=== PATIENT | male | born 1965 | race Caucasian/White ===

== ENCOUNTER 2019-12-21 13:13 | Emergency (ER) | payer BC, SELFPAY ==
[2019-12-21 13:28] VITALS: BP 170/86; PULSE 66; RESP 20; TEMP 36.8; O2SAT 98
--- NOTE | 2019-12-21 13:39 | ED.GENADULT ---
HPI - General Adult General Chief complaint: Upper Respiratory Infection Stated complaint: congestion/fever/cough History of Present Illness HPI narrative: This is a 54-year-old male comes in with body ache and malaise cough and a fever. Patient states that he is taken some Tylenol ibuprofen denies any nausea or vomiting no dizziness Related Data Home Medications Medication Instructions Recorded Confirmed aspirin [Adult Low Dose Aspirin] 81 mg PO DAILY 12/21/19 12/21/19 pantoprazole [Protonix] 40 mg PO HS 12/21/19 12/21/19 Allergies Allergy/AdvReac Type Severity Reaction Status Date / Time No Known Allergies Allergy Verified 12/21/19 13:32 Review of Systems Review of Systems: Narrative: CONSTITUTIONAL: Reports fever, chills, or sweats. EYES: Denies visual changes, redness, or discharge. ENT: Reports rhinorrhea, congestion, sore throat, or otalgia. CARDIOVASCULAR:Denies chest pain, palpitations, or edema. RESPIRATORY: Reports cough or dyspnea. GASTROINTESTINAL: Denies abdominal pain, nausea, vomiting, or diarrhea. GENITOURINARY: Denies dysuria or hematuria. SKIN:[Denies rash or itching. MUSCULOSKELETAL:Denies back pain, joint pain, or myalgia. NEUROLOGIC: Denies headache, numbness, or weakness. PSYCHIATRIC:Denies anxiety or depression PMFSH Social History Social History Gender identity (if verbalized by the patient): Male Comments At time as signature, I have reviewed and agree with nursing past medical, social, surgical and family history. Please see nursing chart for further information. There is no relevant family history pertinent to the presenting complaint. Exam Narrative: Exam Narrative: GENERAL:Well-appearing, well-nourished, and in no acute distress. Complains of fatigue HEAD:Normocephalic, atraumatic. EYES: PERRLA and EOMI. ENT: Nares clear, moderate clear rhinorrhea or epistaxis. Mucous membranes moist. TM bulging NECK: Supple. CHEST: Clear to auscultation. No respiratory distress. HEART: Regular rate and rhythm. No murmur heard. Normal peripheral pulses. ABDOMEN: Soft, nontender, nondistended, normal active bowel sounds. EXTREMITIES: Normal range of motion. No edema. SKIN: Warm, dry, no rash. NEURO: No focal deficits. Alert and oriented x3. Course Vital Signs Vital signs: Vital Signs Temperature 98.2 F 12/21/19 13:28 Pulse Rate 66 12/21/19 13:28 Respiratory Rate 20 12/21/19 13:28 Blood Pressure 170/86 H 12/21/19 13:28 Pulse Oximetry 98 12/21/19 13:28 Temperature 98.2 F 12/21/19 13:28 Pulse Rate 66 12/21/19 13:28 Respiratory Rate 20 12/21/19 13:28 Blood Pressure 170/86 H 12/21/19 13:28 Pulse Oximetry 98 12/21/19 13:28 Medical Decision Making Vital Signs Vital Signs: Vital Signs Temperature 98.2 F 12/21/19 13:28 Pulse Rate 66 12/21/19 13:28 Respiratory Rate 20 12/21/19 13:28 Blood Pressure 170/86 H 12/21/19 13:28 Pulse Oximetry 98 12/21/19 13:28 Temperature 98.2 F 12/21/19 13:28 Pulse Rate 66 12/21/19 13:28 Respiratory Rate 20 12/21/19 13:28 Blood Pressure 170/86 H 12/21/19 13:28 Pulse Oximetry 98 12/21/19 13:28 Lab Data Labs: Influenza A Screen Positive Reference Range: Negative Influenza B Screen Negative Reference Range: Negative Discharge Plan Discharge Clinical Impression: Influenza Patient Disposition: Home, Self-Care Condition: Stable Instructions: Antibiotic Form Prescriptions: New ondansetron HCl [Zofran] 4 mg tablet 4 mg PO Q8H PRN (Reason: nausea and vomiting) Qty: 10 RF: 0 Xofluza 40 mg tablet 40 mg PO ONCE Qty: 2 RF: 0 No Action aspirin [Adult Low Dose Aspirin] 81 mg Tablet,Delayed Release (Dr/Ec) 81 mg PO DAILY RF: 0 pantoprazole [Protonix] 40 mg Tablet,Delayed Release (Dr/Ec) 40 mg PO HS RF: 0 Follow-up/Referrals: UNKNOWN,DOCTOR [Primary Care Provider] - Stand Alone Forms: Work/Scho
== END 2019-12-21 14:06 | disposition home or self-care (01) ==
PROVIDERS: Emergency Provider Nurse Practitioner Family
DX: J10.1 Influenza due to other identified influenza virus with other respiratory manifestations (principal); K21.9 Gastro-esophageal reflux disease without esophagitis
CPT/HCPCS: 87804; 99203; G0463

== ENCOUNTER 2021-04-28 11:05 | Emergency (ER) | payer OTHER, SELFPAY ==
[2021-04-28 11:12] VITALS: BP 152/92; PULSE 77; RESP 16; TEMP 36.6; O2SAT 99
--- NOTE | 2021-04-28 11:20 | ED.ABDPAIN ---
HPI - Abdominal Pain General Chief Complaint: Abdominal Pain Stated Complaint: abdominal pain/diarrhea Time Seen by Provider: 04/28/21 11:20 Source: patient and RN notes reviewed Mode of arrival: ambulatory Limitations: no limitations History of Present Illness HPI narrative: 55-year-old male presents to the [facility] with complaints of abdominal pain x1 week, worse since Wednesday, 2 days ago. Diarrhea every 2 hours. Denies any past surgical or medical history MD elicited complaint: abdominal pain Related Data Home Medications Medication Instructions Recorded Confirmed No Home Medications 04/28/21 04/28/21 Allergies Allergy/AdvReac Type Severity Reaction Status Date / Time No Known Allergies Allergy Verified 04/28/21 11:21 Review of Systems Review of Systems: All systems reviewed & are unremarkable except as noted in HPI and below Constitutional: Constitutional: Reports as per HPI, Reports chills and Denies fever(s) Eyes: Eyes: Reports no additional eye complaints ENT: Reports system reviewed and no additional complaints, except as documented Cardiovascular: Cardiovascular: Reports no additional cardiovascular complaints and Denies chest pain Respiratory: Respiratory: Reports no additional respiratory complaints, Denies chest congestion, Denies cough, Denies dyspnea and Denies wheezing Gastrointestinal: Gastrointestinal: Reports as per HPI, Reports abdominal pain, Reports diarrhea (q2h), Reports nausea and Denies vomiting Genitourinary: Genitourinary: Reports no additional male genitourinary complaints Musculoskeletal: Musculoskeletal: Reports no additional musculoskeletal complaints, Denies back pain and Denies myalgias Integumentary/Breasts: Skin/Breast: Reports system reviewed and no additional complaints, except as docu Neurologic: Reports system reviewed and no additional complaints, except as documented Psychiatric: Psychiatric: Reports no additional psychiatric complaints Allergic/Immunologic: Allergic/Immunologic: Reports no additional allergic/immunologic complaints PMFSH Social History Social History Gender identity (if verbalized by the patient): Male Comments Patient denies any significant past medical or surgical history. At the time of my signature, I reviewed and agree with the nursing past medical, surgical, social, and family history. There is no relevant family history pertinent to the patient complaint. Exam Const: General: healthy appearing, no acute distress and alert Nutritional Appearance: well nourished and obese Orientation/consciousness: patient oriented x3 Limitations: no limitations HENMT: Head: normal to inspection Eyes: Pupils: Equal, round and reactive pupils present Neck: Neck: normal visual inspection, no lymphadenopathy and no meningeal signs Chest: Chest palpation & inspection: normal inspection of the chest Resp: Effort & Inspection: normal respiratory effort and no use of accessory muscles Auscultation: clear to auscultation bilaterally, no crackles, no rales, no rhonchi and no wheezes Cardio: Rate: regular rate Rhythm: regular rhythm GI: GI Palp: Yes Soft to palpation, No Guarding due to palpation present (GI) and No Rebound tenderness present Auscultation: Hyperactive bowel sounds present Back/Spine/Pelvis: Back: no CVA tenderness Skin: General skin exam: normal color Rashes: no rashes Wounds: no wounds Neuro: General: patient oriented x3, moves all extremities, no meningeal signs and no focal motor deficits Speech: normal speech Gait exam (Neuro): Normal gait present Extrem: General: normal to inspection Psych: Appearance: grossly normal and well kempt Mental Status: mental status grossly normal Affect: normal affect Attitude: cooperative Thought content: Yes Normal thought content present Course Vital Signs Vital
== END 2021-04-28 11:31 | disposition short-term general hospital (02) ==
LOC: EXPGLEN 11:09
PROVIDERS: Emergency Provider Nurse Practitioner
DX: R10.9 Unspecified abdominal pain (principal); R19.7 Diarrhea, unspecified
CPT/HCPCS: 99212; G0463

== ENCOUNTER 2021-04-28 12:18 | Emergency (ER) | payer OTHER, SELFPAY ==
--- NOTE | ~2021-04-28 | CT_ITS ---
EXAMINATION: CT abdomen pelvis w con DATE: 04/28/2021 15:47 INDICATION: Lower abdominal pain. TECHNIQUE: Computed tomography (CT) of the abdomen and pelvis was performed with 100 mL Omnipaque-350 intravenous contrast. Automated exposure control and iterative reconstruction technique were employe d. The dose-length product was 1269.93 mGy-cm. COMPARISON: None FINDINGS: Small calcified left lower lobe nodule along with a few scattered small splenic calcifications consis tent with old granulomatous disease. Mild discoid atelectasis in the right lower lobe. Heart size is normal. No pericardial or pleural effusion. Mild diffuse hepatic steatosis. Gallbladder, pancreas, bi lateral adrenal glands and kidneys are normal. Normal appendix. There is wall thickening at the termi nal ileum as well as at the cecum consistent with terminal ileitis and proximal colitis. No bowel obs truction. Bladder is normal. No free intraperitoneal gas or fluid. No pathologically enlarged abdomin al or pelvic lymphadenopathy. Mild lumbar levocurvature with mild spondylosis. IMPRESSION: 1. Wall thickening of the terminal ileum and ascending colon consistent with terminal ileitis and pro ximal colitis which most likely infectious or inflammatory in etiology including Crohn's disease. Reviewed, dictated and finalized at location A. IMPRESSION: 1. Wall thickening of the terminal ileum and ascending colon consistent with te rminal ileitis and proximal colitis which most likely infectious or inflammator y in etiology including Crohn's disease.
[2021-04-28 12:32] VITALS: BP 156/92; PULSE 80; RESP 16; TEMP 37; O2SAT 96
[2021-04-28 12:47] LABS: Basophils Percent Auto 0.4 % (0.2-1.2); Eosinophils Absolute Auto 0.1 K/mm3 (0-0.3); Eosinophils Percent Auto 0.7 % (0-4.4); Hematocrit 45.8 % (42.0-52.0); Immature Granulocyte Absolute 0.02 K/mm3 (0.00-0.031); Immature Granulocyte Percent A 0.3 % (0-0.5); Lymphocytes Absolute Auto 1.19 K/mm3 (0.9-3.2); Lymphocytes Percent Auto 15.9 % (18.3-44.2); Mean Corpuscular HGB Conc 34.9 g/dl (32-36); Mean Corpuscular Hemoglobin 33.3 pg (26-34); Mean Corpuscular Volume 95.4 fl (80-100); Mean Platelet Volume 10.1 fl (7.4-10.4); Monocytes Absolute Auto 0.6 K/mm3 (0.1-0.6); Monocytes Percent Auto 7.5 % (2.6-8.5); Neutrophils Absolute Auto 5.6 K/mm3 (1.3-6.7); Neutrophils Percent Auto 75.2 % (45.5-73.1); Platelet Count Result 152 k/mm3 (150-375); Red Cell Distribution Width 12.4 % (11.5-14.5); White Blood Count 7.5 K/mm3 (4.5-10.0)
[2021-04-28 12:58] LABS: Alanine Aminotransferase 44 U/L (4-50); Albumin Level 4.7 g/dL (3.5-5.1); Alkaline Phosphatase 82 U/L (38-126); Anion Gap 13 mmol/L (8-16); Aspartate Amino Transferase 28 U/L (17-59); Bilirubin,Total 1.2 mg/dL (0.2-1.3); Blood Urea Nitrogen 13 mg/dL (9-20); Calcium 9.7 mg/dL (8.4-10.2); Carbon Dioxide 23 mmol/L (22-30); Chloride 97 mmol/L (98-107); Estimated CRCL calculation 103 ml/min; Estimated Glomerular Filt Rate > 60; Glucose 122 mg/dL (75-110); Lipase 34 U/L (23-300); Potassium 3.7 mmol/L (3.4-5.0); Sodium 133 mmol/L (137-145)
[2021-04-28 14:16] LABS: Add Urine Microscopic? YES; Appearance Urine Clear (Clear); Bacteria Urine Trace /hpf; Bilirubin Urine Negative (Negative); Blood Urine 1+ (Negative); Color Urine Amber (Yellow); Glucose Urine UA Negative (Negative); Ketones Urine Negative (Negative); Leukocyte Esterase Ur Negative LEU/UL (Negative); Mucus Urine Moderate /lpf; Nitrate Urine Negative (Negative); Protein Urine 1+ mg/dL (Negative); RBC Urine 0-2 /hpf (0-2); Specific Grav Ur 1.029 (1.001-1.035); Squamous Epithelial Cell Urine Rare /hpf (Few); Urobilinogen Urine Negative mg/dL (<2.0); WBC Urine 0-3 /hpf
[2021-04-28 15:00] VITALS: BP 135/87; PULSE 86; RESP 17; O2SAT 96
--- NOTE | 2021-04-28 16:43 | ED.GENADULT ---
HPI - General Adult General Chief complaint: Abdominal Pain Stated complaint: abd pain Time Seen by Provider: 04/28/21 13:51 History of Present Illness HPI narrative: Patient is a 55-year-old male who presents ER with crampy abdominal pain. Ongoing over the last couple days. Associated with frequent loose stools up to 20 a day. No fevers or chills or sweats. Occasionally still has blood in it. No known sick contacts. Has had a normal colonoscopy in the past. Has had nausea but no vomiting. Related Data Allergies Allergy/AdvReac Type Severity Reaction Status Date / Time No Known Allergies Allergy Verified 04/28/21 11:21 Review of Systems Review of Systems: All systems reviewed & are unremarkable except as noted in HPI and below Constitutional: Constitutional: Denies chills, Denies fever(s) and Denies weakness ENT: Denies nasal congestion and Denies sore throat Cardiovascular: Cardiovascular: Denies chest pain and Denies radiating jaw, neck or arm pain Respiratory: Respiratory: Denies cough and Denies dyspnea Gastrointestinal: Gastrointestinal: Reports abdominal pain, Reports diarrhea, Denies nausea and Denies vomiting PMFSH Past Medical History Medical History (Updated 04/28/21 @ 17:14 by Shady Toro MD) Healthy adult male Surgical History Surgical History (Updated 04/28/21 @ 17:14 by Shady Toro MD) No history of previous surgery Social History Social History (Updated 04/28/21 @ 17:14 by Shady Toro MD) Smoking status: Never smoker Gender identity (if verbalized by the patient): Male Exam Narrative: Exam Narrative: GENERAL: Well-appearing, well-nourished, and in no acute distress. HEAD: Normocephalic, atraumatic. ENT: Mucous membranes moist. CHEST: Clear to auscultation. No respiratory distress. HEART: Regular rate and rhythm. Normal peripheral pulses. ABDOMEN: Soft, nontender, nondistended. EXTREMITIES: Normal range of motion. No edema. SKIN: Warm, dry, no rash. NEURO: Alert and oriented x3. PSYCH: Normal mood and affect. Course Course Emergency Course: Patient informed of results. Discussed treatment plan. Discharge home. Vital Signs Vital signs: Vital Signs Temperature 98.6 F 04/28/21 12:32 Pulse Rate 80 04/28/21 12:32 Respiratory Rate 16 04/28/21 12:32 Blood Pressure 156/92 H 04/28/21 12:32 Pulse Oximetry 96 04/28/21 12:32 Temperature 98.6 F 04/28/21 12:32 Pulse Rate 86 04/28/21 15:00 Respiratory Rate 17 04/28/21 15:00 Blood Pressure 135/87 04/28/21 15:00 Pulse Oximetry 96 04/28/21 15:00 Medical Decision Making Vital Signs Vital Signs: Vital Signs Temperature 98.6 F 04/28/21 12:32 Pulse Rate 80 04/28/21 12:32 Respiratory Rate 16 04/28/21 12:32 Blood Pressure 156/92 H 04/28/21 12:32 Pulse Oximetry 96 04/28/21 12:32 Temperature 98.6 F 04/28/21 12:32 Pulse Rate 86 04/28/21 15:00 Respiratory Rate 17 04/28/21 15:00 Blood Pressure 135/87 04/28/21 15:00 Pulse Oximetry 96 04/28/21 15:00 Lab Data Result diagrams: 04/28/21 12:37 04/28/21 12:37 Labs: Lab Results 04/28/21 04/28/21 04/28/21 Range/Units 12:37 12:37 13:56 WBC 7.5 (4.5-10.0) K/mm3 RBC 4.80 (4.6-6.20) M/mm3 Hgb 16.0 (14.0-18.0) g/dL Hct 45.8 (42.0-52.0) % MCV 95.4 (80-100) fl MCH 33.3 (26-34) pg MCHC 34.9 (32-36) g/dl RDW 12.4 (11.5-14.5) % Plt Count 152 (150-375) k/mm3 MPV 10.1 (7.4-10.4) fl Immature Gran % (Auto) 0.3 (0-0.5) % Neut % (Auto) 75.2 H (45.5-73.1) % Lymph % (Auto) 15.9 L (18.3-44.2) % Prentiss % (Auto) 7.5 (2.6-8.5) % Eos % (Auto) 0.7 (0-4.4) % Baso % (Auto) 0.4 (0.2-1.2) % Lymph # (Auto) 1.19 (0.9-3.2) K/mm3 Prentiss # (Auto) 0.6 (0.1-0.6) K/mm3 Eos # (Auto) 0.1 (0-0.3) K/mm3 Baso # (Auto) 0.0 (0.0-0.1) K/mm3 Abs Immat Gran (auto) 0.02 (0.00-0.031) K/mm3 Absolute
== END 2021-04-28 17:10 | disposition home or self-care (01) ==
PROVIDERS: Emergency Provider Emergency Medicine
DX: K52.9 Noninfective gastroenteritis and colitis, unspecified (principal)
CPT/HCPCS: 36415; 74177; 80053; 81001; 83690; 85025; 99284; Q9967

== ENCOUNTER 2021-09-24 09:31 | Emergency (ER) | payer OTHER, SELFPAY ==
[2021-09-24] VITALS (21 sets, daily range): BP systolic 156–176; BP diastolic 87–119; PULSE 53–71; RESP 14–20; TEMP 36.6; O2SAT 95–100
--- NOTE | ~2021-09-24 | CT_ITS ---
EXAMINATION: CT brain wo con DATE: 09/24/2021 10:53 INDICATION: Headache. TECHNIQUE: Computed tomography (CT) of the head was performed without intravenous contrast. The mA wa s adjusted according to patient size. Iterative reconstruction technique was employed. The dose-lengt h product was 681.00 mGy-cm. COMPARISON: None FINDINGS: There is no intracranial hemorrhage, acute infarction, or abnormal intracranial mass lesion . The ventricles are normal in size. The orbits are normal. There is mucosal thickening in the parana pretty sinuses. The mastoid air cells are normal. IMPRESSION: 1. Normal brain. Reviewed, dictated and finalized at location A. RVISOR MACHINE SETTER IMPRESSION: 1. Normal brain.
--- NOTE | ~2021-09-24 | XR_ITS ---
EXAMINATION: XR chest 2V DATE: 09/24/2021 10:57 INDICATION: Hypertension. Headache. TECHNIQUE: Frontal and lateral views of the chest were obtained. COMPARISON: CT abdomen and pelvis 04/28/2021 FINDINGS: The chest demonstrates clear lungs without pneumonia, pleural effusion, or pneumothorax. Th e heart size is normal. IMPRESSION: 1. No acute cardiopulmonary disease. Reviewed, dictated and finalized at location A. TESY BOOTH CASHIER
--- NOTE | 2021-09-24 10:13 | ECG_ITS ---
Measurements Intervals [place] Rate: 53 P: 56 LA: 176 QRS: -6 QRSD: 109 T: 44 QT: 417 QTc: 394 Interpretive Statements SINUS BRADYCARDIA INCOMPLETE RIGHT BUNDLE BRANCH BLOCK CONSIDER INFERIOR INFARCT, AGE INDETERMINATE ABNORMAL ECG Electronically Signed On 09-24-2021 11:29:01 RN ANESTHESIOLOGY by Les Carson D.O.
--- NOTE | 2021-09-24 10:14 | ED.HA ---
HPI - Headache General Chief Complaint: Headache <EMMANUEL Seymour Last Filed: 09/24/21 12:43> Stated Complaint: high BP <EMMANUEL Seymour Last Filed: 09/24/21 12:43> Time Seen by Provider: 09/24/21 09:53 <EMMANUEL Seymour Last Filed: 09/24/21 12:43> Source: patient <EMMANUEL Seymour Last Filed: 09/24/21 12:43> Mode of arrival: ambulatory <EMMANUEL Seymour Last Filed: 09/24/21 12:43> Limitations: no limitations <EMMANUEL Seymour Last Filed: 09/24/21 12:43> History of Present Illness HPI Narrative: This is a 56 year old male that presents to the ER for high blood pressure x 1 week. Associated with a headache. Reports history of hypertension in the past for which she has been on hydrochlorothiazide. Reports he had lost some weight and was able to come off of his hypertension medication. Denies vision changes, vomiting, chest pain, shortness of breath, or lower extremity edema. <EMMANUEL Seymour Last Filed: 09/24/21 12:43> Related Data Home Medications: Home Medications Medication Instructions Recorded Confirmed omeprazole 20 mg capsule,delayed 20 mg PO DAILY 07/07/21 09/24/21 release tadalafil 20 mg tablet 20 mg PO DAILY PRN 07/07/21 09/24/21 <EMMANUEL Seymour Last Filed: 09/24/21 12:43> Allergies/Adverse Reactions: Allergies Allergy/AdvReac Type Severity Reaction Status Date / Time No Known Allergies Allergy Verified 09/24/21 13:31 <EMMANUEL Seymour Last Filed: 09/24/21 12:43> Review of Systems Review of Systems: CONSTITUTIONAL: Denies fever EYES: Denies visual changes CARDIOVASCULAR: Denies chest pain, or edema. RESPIRATORY: Denies dyspnea. NEUROLOGIC: Reports headache. Denies numbness, or weakness. <EMMANUEL Seymour Last Filed: 09/24/21 12:43> All systems reviewed & are unremarkable except as noted in HPI and below <Rosa Tavarez PA-C - Last Filed: 09/24/21 12:43> PMFSH Past Medical History Medical History: Medical History Healthy adult male <Rosa Tavarez PA-C - Last Filed: 09/24/21 12:43> Surgical History Surgical History: Surgical History No history of previous surgery <Rosa Tavarez PA-C - Last Filed: 09/24/21 12:43> Social History Social History: Social History (Updated 07/07/21 @ 13:54 by Shelli Mariscal [facility]) Smoking status: Never smoker Alcohol intake: current Drinks per week: 12 Substance use: never Substance use type: does not use Gender identity (if verbalized by the patient): Male Spiritual care concerns: No <Rosa Taavrez PA-C - Last Filed: 09/24/21 12:43> Exam Narrative: GENERAL: Well-appearing, well-nourished, and in no acute distress. HEAD: Normocephalic, atraumatic. EYES: PERRLA and EOMI. ENT: Nares clear, no rhinorrhea or epistaxis. Mucous membranes moist. Oropharynx without tonsillar hypertrophy exudate or other lesions. Bilateral TMs pearly enriquez non-bulging NECK: Supple. No adenopathy or masses. CHEST: Clear to auscultation. No respiratory distress. No wheezes rales or rhonchi HEART: Regular rate and rhythm. No murmur heard. Normal peripheral pulses. EXTREMITIES: Normal range of motion. No edema. SKIN: Warm, dry, no rash. NEURO: No focal deficits. Alert and oriented x3. Cranial nerves II through XII grossly intact PSYCH: Normal mood and affect <Rosa Tavarez PA-C - Last Filed: 09/24/21 12:43> Course CHILD PSYCHIATRIST/PA Physician Supervision I did not see this patient nor was the care plan discussed with me. I was available for evaluation and consultation, I agree with the documentation <Neto Araujo MD - Last Filed: 09/24/21 17:33> Consultations Consultation #1: Spoke with Dr. Mooney about patient and workup who will follow up in clinic. Would like patient to be start
[2021-09-24 11:12] LABS: Basophils Percent Auto 0.3 % (0.2-1.2); Eosinophils Absolute Auto 0.2 K/mm3 (0-0.3); Eosinophils Percent Auto 3.2 % (0-4.4); Hematocrit 43.8 % (42.0-52.0); Hemoglobin 15.7 g/dL (14.0-18.0); Immature Granulocyte Absolute 0.02 K/mm3 (0.00-0.031); Immature Granulocyte Percent A 0.3 % (0-0.5); Lymphocytes Absolute Auto 2.08 K/mm3 (0.9-3.2); Lymphocytes Percent Auto 35.1 % (18.3-44.2); Mean Corpuscular HGB Conc 35.8 g/dl (32-36); Mean Corpuscular Hemoglobin 34.6 pg (26-34); Mean Corpuscular Volume 96.5 fl (80-100); Mean Platelet Volume 10.3 fl (7.4-10.4); Monocytes Absolute Auto 0.5 K/mm3 (0.1-0.6); Monocytes Percent Auto 8.1 % (2.6-8.5); Neutrophils Absolute Auto 3.1 K/mm3 (1.3-6.7); Platelet Count Result 181 k/mm3 (150-375); Red Blood Count 4.54 M/mm3 (4.6-6.20); Red Cell Distribution Width 12.4 % (11.5-14.5); White Blood Count 5.9 K/mm3 (4.5-10.0)
[2021-09-24 11:35] LABS: Anion Gap 11 mmol/L (8-16); Blood Urea Nitrogen 14 mg/dL (9-20); Calcium 9.4 mg/dL (8.4-10.2); Carbon Dioxide 24 mmol/L (22-30); Chloride 102 mmol/L (98-107); Estimated CRCL calculation 94 ml/min; Estimated Glomerular Filt Rate > 60; Glucose 158 mg/dL (65-110); Potassium 4.2 mmol/L (3.4-5.0); Sodium 137 mmol/L (137-145)
== END 2021-09-24 13:07 | disposition home or self-care (01) ==
PROVIDERS: Physician Assistant; Emergency Provider Emergency Medicine; PCP Internal Medicine
DX: I10 Essential (primary) hypertension (principal)
CPT/HCPCS: 36415; 70450; 71046; 80048; 85025; 93005; 99284

== ENCOUNTER 2022-12-03 22:45 | Emergency (ER) | payer OTHER, SELFPAY ==
--- NOTE | ~2022-12-03 | XR_ITS ---
EXAMINATION: XR chest 2V 12/03/2022 23:04 INDICATION: Chest pain. Hypertension. PROCEDURE: PA and lateral views of the chest COMPARISON: 09/24/2021 FINDINGS: The lungs are clear. The cardiomediastinal silhouette is within normal limits. There are no pleural effusions. There is no pneumothorax suspected. IMPRESSION: 1: NO ACUTE CARDIOPULMONARY DISEASE. Reviewed, dictated and finalized at location A. L WORKER
[2022-12-03 22:46] VITALS: BP 177/102; PULSE 70; RESP 19; TEMP 36.8; O2SAT 98
--- NOTE | 2022-12-03 22:46 | ECG_ITS ---
Measurements Intervals [place] Rate: 69 P: 31 IA: 183 QRS: -3 QRSD: 109 T: 29 QT: 402 QTc: 433 Interpretive Statements SINUS RHYTHM LOW QRS VOLTAGE IN PRECORDIAL LEADS [QRS DEFLECTION < 1.0 mV IN CHEST LEADS] INCOMPLETE RIGHT BUNDLE BRANCH BLOCK [90+ ms QRS DURATION, TERMINAL R IN V1/V2, 40+ ms S IN I/aVL/V4/V5/V6] CONSIDER PREVIOUS INFERIOR INFARCT] COMPARED TO ECG 09/24/2021 11:12:21 THERE ARE NO SIGNIFICANT CHANGES Electronically Signed On 12-04-2022 15:19:37 DIRECT CARE COUNSELOR by Lucas Montemayor M.D.
[2022-12-03 23:10] LABS: Basophils Percent Auto 0.3 % (0.2-1.2); Eosinophils Absolute Auto 0.2 K/mm3 (0-0.3); Eosinophils Percent Auto 3.7 % (0-4.4); Hematocrit 41.8 % (42.0-52.0); Hemoglobin 14.9 g/dL (14.0-18.0); Immature Granulocyte Absolute 0.02 K/mm3 (0.00-0.031); Immature Granulocyte Percent A 0.3 % (0-0.5); Lymphocytes Absolute Auto 1.85 K/mm3 (0.9-3.2); Lymphocytes Percent Auto 28.7 % (18.3-44.2); Mean Corpuscular HGB Conc 35.6 g/dl (32-36); Mean Corpuscular Hemoglobin 32.7 pg (26-34); Mean Corpuscular Volume 91.7 fl (80-100); Mean Platelet Volume 10.4 fl (7.4-10.4); Monocytes Absolute Auto 0.6 K/mm3 (0.1-0.6); Neutrophils Absolute Auto 3.7 K/mm3 (1.3-6.7); Platelet Count Result 152 k/mm3 (150-375); Red Blood Count 4.56 M/mm3 (4.6-6.20); Red Cell Distribution Width 12.2 % (11.5-14.5); White Blood Count 6.5 K/mm3 (4.5-10.0)
[2022-12-03 23:19] LABS: Alanine Aminotransferase 167 U/L (6-50); Albumin Level 4.3 g/dL (3.5-5.1); Alkaline Phosphatase 82 U/L (38-126); Anion Gap 9 mmol/L (8-16); Aspartate Amino Transferase 76 U/L (17-59); Bilirubin,Total 0.6 mg/dL (0.2-1.3); Blood Urea Nitrogen 14 mg/dL (9-20); Calcium 8.9 mg/dL (8.4-10.2); Carbon Dioxide 24 mmol/L (22-30); Chloride 100 mmol/L (98-107); Estimated CRCL calculation 110 ml/min; Estimated Glomerular Filt Rate > 60; Glucose 230 mg/dL (65-110); Lipase 80 U/L (23-300); Potassium 3.8 mmol/L (3.4-5.0); Sodium 133 mmol/L (137-145)
[2022-12-03 23:21] LABS: Partial Thromboplastin Time 27.3 SECONDS (22.3-36.8); Prothrombin Time 13.1 Seconds (11.1-14.7)
[2022-12-03 23:30] LABS: Troponin I < 0.012 ng/mL (0.000-0.034)
[2022-12-04 02:30] VITALS: BP 181/109; PULSE 63; RESP 16; O2SAT 99
[2022-12-04 03:21] LABS: Troponin I < 0.012 ng/mL (0.000-0.034)
--- NOTE | 2022-12-04 05:14 | ED.GENADULT ---
HPI - General Adult General Chief complaint: Chest Pain Stated complaint: chest pain, elevated bp Time Seen by Provider: 12/04/22 03:23 History of Present Illness HPI narrative: This is a 57-year-old male presenting to ED with bilateral shoulder pain. Patient says that 5:00 p.m. last night he started feel a sharp pain in the anterior portion of his shoulders bilaterally. Is a stabbing pain, that was initially 9 out 10 intensity was decreased to 4 out 10 intensity without intervention. Says that it comes and goes. He has never experienced pain like this before. It is positional and improves his hands above his head. It is worse when he lays on his back. Is not associated with nausea vomiting diaphoresis, numbness tingling or weakness or shortness of breath. The patient denies fever chills. He denies traumatic injury. The goal today's visit is determine if he is having a heart attack. Related Data Home Medications Medication Instructions Recorded Confirmed omeprazole 20 mg capsule,delayed 20 mg PO DAILY 07/07/21 09/24/21 release tadalafil 20 mg tablet (Cialis) 20 mg PO DAILY PRN Sexual Activity 07/07/21 09/24/21 Allergies Allergy/AdvReac Type Severity Reaction Status Date / Time No Known Allergies Allergy Verified 09/24/21 13:31 [facility] Past Medical History Medical History Healthy adult male Hypertension Surgical History Surgical History No history of previous surgery Social History Social History Smoking status: Never smoker Alcohol intake: current Drinks per week: 12 Substance use: never Substance use type: does not use Living arrangements: with family Gender identity (if verbalized by the patient): Male Spiritual care concerns: No Exam Narrative: APPEARANCE: No apparent distress. Head: atraumatic. EYES: EOMI, NOSE: Atraumatic NECK: Trachea midline RESPIRATORY: No increased rate of breathing , clear to auscultation bilaterally CARDIOVASCULAR: RRR, no peripheral edema, +2 pulses in all extremity, good peripheral circulation ABDOMINAL: Non-distended MUSCULOSKELETAl: No obvious deformities, no tenderness to palpation, NEURO: Alert. Moving 4/4 extremities, no recreation of symptoms with axial loading of the spine. SKIN:: Warm, dry. Normal color PSYCHIATRIC: Normal affect Course Vital Signs Vital signs: Vital Signs Temperature 98.2 F 12/03/22 22:46 Pulse Rate 70 12/03/22 22:46 Respiratory Rate 19 12/03/22 22:46 Blood Pressure 177/102 H 12/03/22 22:46 Pulse Oximetry 98 12/03/22 22:46 Temperature 98.2 F 12/03/22 22:46 Pulse Rate 63 12/04/22 02:30 Respiratory Rate 16 12/04/22 02:30 Blood Pressure 181/109 H 12/04/22 02:30 Pulse Oximetry 99 12/04/22 02:30 Medical Decision Making [facility] Narrative Medical decision making narrative: -Presentation: This is a 57-year-old male presenting ED with bilateral shoulder pain. 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 CBC was within normal limits. Metabolic panel was within normal limits. Troponin negative x2. Dx tests considered but not ordered: None -Procedures: none -Interventions: Motrin, Vidal, Robax
[2022-12-04] MEDS: methocarbamoL 750 MG TABLET 1500 MG PO (05:15)
[2022-12-04] MEDS: KETOROLAC 15 MG/ML VIAL (*BKC) IV PUSH (05:15)
[2022-12-04] MEDS: HYDROcodone/acetaminophen (*CRX) 5-325 MG TABLET 1 TAB PO (05:16)
[2022-12-04 05:33] VITALS: BP 169/101; PULSE 77; RESP 18; TEMP 36.6; O2SAT 99
== END 2022-12-04 05:34 | disposition home or self-care (01) ==
PROVIDERS: Emergency Provider Emergency Medicine
DX: M25.512 Pain in left shoulder (principal); M25.511 Pain in right shoulder; I10 Essential (primary) hypertension; I45.10 Unspecified right bundle-branch block; R94.31 Abnormal electrocardiogram [ECG] [EKG]
CPT/HCPCS: 36415; 71046; 80053; 83690; 84484; 85025; 85610; 85730; 93005; 96374; 99284; A9270; J1885